=== PATIENT | male | born 1970 | race Caucasian/White ===

== ENCOUNTER → 2021-06-17 | Emergency (ER) | payer OTHER ==
[~2021-06-17] VITALS: Ht 193 cm; Wt 99.8 kg
== END | disposition home or self-care (01) ==
LOC: ER1 11:22 → EDBD 11:22
DX: U07.1 COVID-19 (principal); E03.9 Hypothyroidism, unspecified; Z23 Encounter for immunization
CPT/HCPCS: 99283; M0245; U0002

== ENCOUNTER → 2021-12-30 | Outpatient (CLI) | payer OTHER | LOC: EXRD 13:15 | DX: E03.9 Hypothyroidism, unspecified (principal); E04.2 Nontoxic multinodular goiter | CPT/HCPCS: 76536 ==